=== PATIENT | female | born 1995 | race African-American/Black ===

== ENCOUNTER 2019-01-06 14:51 | Emergency (ER) | payer OTHER, MEDICAID ==
[~2019-01-06] VITALS: Ht 165.1 cm; Wt 74.4 kg
[2019-01-06 15:24] VITALS: BP 141/74
[2019-01-06 17:30] VITALS: BP 132/69
== END 2019-01-06 17:30 | disposition home or self-care (01) ==
LOC: MED 14:51
DX: J45.909 Unspecified asthma, uncomplicated (principal); R05 Cough; R09.81 Nasal congestion
CPT/HCPCS: 99283

== ENCOUNTER 2023-02-08 14:55 | Emergency (ER) | payer OTHER, MEDICAID ==
[~2023-02-08] VITALS: Ht 162.6 cm; Wt 83.0 kg
[2023-02-08 15:33] VITALS: BP 144/88; PULSE 60; RESP 20; TEMP 98.3; O2SAT 100
[2023-02-08 16:38] LABS: APPEARANCE,URINE CLEAR (CLEAR); BILIRUBIN,URINE 1+ (NEGATIVE); BLOOD, URINE 1+ (NEGATIVE); COLOR,URINE YELLOW (YELLOW); LEUKOCYTE ESTERASE ,URINE NEGATIVE (NEGATIVE); NITRITE, URINE NEGATIVE (NEGATIVE); PROTEIN,URINE 1+ (NEGATIVE); UGLUCOSE NEGATIVE (NEGATIVE); UROBILINOGEN,URINE 0.2 EU/dL (0.2 - 1)
[2023-02-08 16:44] LABS: ICTOTEST NEGATIVE (NEGATIVE); RBC,URINE 0-5 /HPF (0-5); WBC,URINE 0-5 /HPF (0-5)
[2023-02-08 16:45] LABS: BACTERIA,URINE 10-30 (MOD) /HPF (None Seen)
[2023-02-08] MEDS ORDERED: ONDANSETRON 4 MG ODT PO ONE (17:00)
[2023-02-08] MEDS ORDERED: KETOROLAC 30 MG/ML VIAL IM ONE (17:00)
[2023-02-08 17:28] LABS: BASOPHILS % (AUTO) 0.3 % (0.0-2.0); EOSINOPHILS % (AUTO) 0.3 % (0.0-4.0); HEMATOCRIT 43.2 % (36-48); HEMOGLOBIN 14.7 g/dL (12.0-16.0); LYMPHOCYTES # (AUTO) 1.6 K/uL (2.5-16.5); LYMPHOCYTES % (AUTO) 17.2 % (20.5-51.1); MEAN CORPUSCULAR HEMOGLOBIN 33 pg (27-31); MEAN CORPUSCULAR HGB CONC 34 g/dL (33-37); MEAN CORPUSCULAR VOLUME 97.8 fL (80-94); MONOCYTES # (AUTO) 0.7 K/uL (0.8-1.0); MONOCYTES % (AUTO) 7.3 % (1.7-9.3); NEUTROPHILS # (AUTO) 7.1 K/uL (1.8-7.7); NEUTROPHILS % (AUTO) 74.9 % (42.2-75.2); PLATELET COUNT (AUTO) 405 K/uL (140-450); RED BLOOD CELL COUNT(AUTO) 4.42 MIL/uL (4.20-5.40); RED CELL DISTRIBUTION WIDTH 13.7 % (11.6-13.7); WHITE BLOOD COUNT (AUTO) 9.5 K/uL (4.8-10.8)
[2023-02-08 17:53] LABS: ALBUMIN 4.6 g/dL (3.4-5.0); ANION GAP 13.9 (8-16); CALCIUM 9.3 mg/dL (8.5-10.1); CARBON DIOXIDE 28.5 mmol/L (21-32); CREATININE 0.9 mg/dL (0.6-1.3); POTASSIUM 3.4 mmol/L (3.5-5.1); TOTAL BILIRUBIN 1.1 mg/dL (0.0-1.0); TOTAL PROTEIN, SERUM 8.5 g/dL (6.4-8.2)
[2023-02-08] MEDS ORDERED: OMEP40EC23 PO (18:22)
[2023-02-08] MEDS ORDERED: ACET-10509 PO (18:22)
[2023-02-08] MEDS ORDERED: ONDA4ODT2 PO (18:22)
[2023-02-08 18:40] VITALS: BP 144/88; PULSE 60; RESP 20; TEMP 98.3; O2SAT 100
== END 2023-02-08 18:40 | disposition home or self-care (01) ==
LOC: MED 14:55
DX: A08.4 Viral intestinal infection, unspecified (principal); J45.909 Unspecified asthma, uncomplicated; Z79.899 Other long term (current) drug therapy
CPT/HCPCS: 36415; 80053; 81001; 81025; 83690; 85025; 87086; 99283